=== PATIENT | female | born 2000 | race Caucasian/White ===

== ENCOUNTER 2024-06-24 05:56 | Day surgery (SDC) | payer BC ==
[2024-06-24] MEDS ORDERED: Midazolam 1 MG/ML 2 ML SDV ONE (06:09)
[2024-06-24] MEDS ORDERED: fentaNYL 100 MCG/2 ML SDV IV ONE (06:10)
[2024-06-24] MEDS ORDERED: fentaNYL 100 MCG/2 ML SDV ONE (06:10)
[2024-06-24] MEDS ORDERED: Midazolam 1 MG/ML 2 ML SDV IV ONE (06:10)
[2024-06-24] MEDS: Sodium Chloride 0.9% 500 ML IV SCH (06:32)
[2024-06-24] MEDS: fentaNYL 100 MCG/2 ML SDV IV ONE ×2 (07:03)
[2024-06-24] MEDS: Midazolam 1 MG/ML 2 ML SDV IV ONE ×2 (07:03→07:04)
== END 2024-06-24 09:10 | disposition home or self-care (01) ==
LOC: DL.ENDO 05:56
PROVIDERS: ATTEND Internal Medicine Gastroenterology
DX: R10.13 Epigastric pain (principal); R63.4 Abnormal weight loss
CPT/HCPCS: 43239; 81025; J2250; J3010; J7040

== ENCOUNTER 2024-08-20 07:10 | Day surgery (SDC) | payer BC ==
[2024-08-20] MEDS: Dextrose 5%-0.45% NaCl 1,000 ML IV SCH (07:49)
[2024-08-20] MEDS ORDERED: Midazolam 1 MG/ML 2 ML SDV ONE (07:59)
[2024-08-20] MEDS ORDERED: Midazolam 1 MG/ML 2 ML SDV IV ONE (08:00)
[2024-08-20] MEDS ORDERED: fentaNYL 100 MCG/2 ML SDV IV ONE (08:00)
[2024-08-20] MEDS ORDERED: fentaNYL 100 MCG/2 ML SDV ONE (08:00)
[2024-08-20] MEDS: fentaNYL 100 MCG/2 ML SDV IV ONE ×6 (08:11→08:31)
[2024-08-20] MEDS: Midazolam 1 MG/ML 2 ML SDV IV ONE ×6 (08:13→08:21)
== END 2024-08-20 10:10 | disposition home or self-care (01) ==
LOC: DL.ENDO 07:10
PROVIDERS: ATTEND Internal Medicine Gastroenterology
DX: R10.9 Unspecified abdominal pain (principal); R19.7 Diarrhea, unspecified; K90.0 Celiac disease
CPT/HCPCS: 81025; J2250; J3010